=== PATIENT | female | born 1990 | race Caucasian/White ===

== ENCOUNTER 2020-07-24 11:20 | Emergency (ER) | payer OTHER ==
[~2020-07-24 11:20] MED LIST: CLEOCIN HCL300 MG PO; COLACE 100MG C100 MG PO; IBUPROFEN600 MG PO; KEFLEX CAP 500500 MG PO; Viscous Lidocaine2% PO
== END 2020-07-24 14:00 | disposition left against medical advice (07) ==
LOC: ER1 11:20
DX: Z53.21 Procedure and treatment not carried out due to patient leaving prior to being seen by health care provider (principal)
CPT/HCPCS: 93005

== ENCOUNTER 2020-11-05 10:46 | Emergency (ER) | payer OTHER ==
[2020-11-05 11:59] LABS: RED BLOOD COUNT 4.52 M/UL (4.00-5.10); WHITE BLOOD COUNT 8.3 K/UL (4.5-11.0)
[2020-11-05 12:18] LABS: BUN/CREATININE RATIO 23 (0-10)
[2020-11-05] MEDS ORDERED: CEFDINIR300 MG PO (16:37)
[2020-11-05] MEDS ORDERED: ZOFRAN ODT 4 MG4 MG PO (16:37)
== END 2020-11-05 17:00 | disposition home or self-care (01) ==
LOC: ER1 10:46
PROVIDERS: Emergency Medicine
DX: N39.0 Urinary tract infection, site not specified (principal); R11.10 Vomiting, unspecified; F17.210 Nicotine dependence, cigarettes, uncomplicated; Z79.899 Other long term (current) drug therapy
CPT/HCPCS: 80053; 81001; 83690; 85025; 87077; 87086; 87186; 96374; 99284; J2405; J7030

== ENCOUNTER → 2021-06-04 | Outpatient (CLI) | payer OTHER ==
[~2021-06-04] MED LIST changes: +CEFDINIR300 MG PO; +ZOFRAN ODT 4 MG4 MG PO
== END ==
LOC: RAD 09:46
DX: M54.6 Pain in thoracic spine (principal); M54.2 Cervicalgia; M54.50 Low back pain, unspecified
CPT/HCPCS: 72050; 72072; 72110

== ENCOUNTER → 2021-08-06 | Outpatient (CLI) | payer OTHER | LOC: KOH-I 07-23 13:00 → EMI 08-01 08:15 | DX: M54.50 Low back pain, unspecified (principal); M48.07 Spinal stenosis, lumbosacral region | CPT/HCPCS: 72148 ==

== ENCOUNTER 2021-12-13 22:23 | Emergency (ER) | payer OTHER ==
[2021-12-13 23:15] LABS: HEMOGLOBIN 11.6 gm/dl (12.3-15.3); RED BLOOD COUNT 3.88 M/UL (4.00-5.10); WHITE BLOOD COUNT 6.9 K/UL (4.5-11.0)
[2021-12-13 23:35] LABS: BUN/CREATININE RATIO 12 (0-10)
[2021-12-14] MEDS ORDERED: MACROBID 100 M100 MG PO (04:12)
== END 2021-12-14 04:17 | disposition home or self-care (01) ==
LOC: ER1 22:23
PROVIDERS: Family Medicine
DX: N39.0 Urinary tract infection, site not specified (principal); R56.9 Unspecified convulsions; F17.200 Nicotine dependence, unspecified, uncomplicated
CPT/HCPCS: 70450; 80053; 80307; 81001; 84703; 85025; 87077; 87086; 87186; 93005; 99284